=== PATIENT | male | born 1995 | race Caucasian/White ===

== ENCOUNTER 2018-01-04 00:07 | Emergency (ER) | payer OTHER ==
[~2018-01-04] VITALS: Ht 165.1 cm; Wt 71.0 kg
[2018-01-04 00:27] VITALS: BP 147/73; PULSE 79; RESP 16; TEMP 98.1; O2SAT 97
--- NOTE | 2018-01-04 01:17 | PD ---
HPI Chief Complaint: Psychiatric Symptoms Time Seen by Provider: 00:13 Travel History International Travel<30 days: No Contact w/Intl Traveler<30days: No Traveled to known affect area: No History of Present Illness HPI 22-year-old white male presents emergency department as a transfer for psychological evaluation under a Sandoval act. Patient was just treated for a mandible fracture. He has arch bars. The patient was placed under a Sandoval act during his evaluation and treatment. Patient states that he has a history of substance abuse but has been sober now for 35 days. History of bipolar disorder and anxiety on Xanax. Patient here denies any suicidal homicidal ideation. He complaints of jaw pain but no other medical complaints. PFSH Past Medical History Narrative Medical Bipolar, anxiety, mandible fracture Asthma: Yes Immunizations Current: Yes Tetanus Vaccination: Unknown Influenza Vaccination: No Past Surgical History Narrative Surgical Arch bars Social History Alcohol Use: Yes (occ) Tobacco Use: Yes Substance Use: No (Sober 35 days) Allergies-Medications (Allergen,Severity, Reaction): Coded Allergies: No Known Allergies (Unverified , 01/04/18) Reported Meds & Prescriptions Reported Meds & Active Scripts Active No Active Prescriptions or Reported Medications Review of Systems General / Constitutional: No: Fever Eyes: No: Visual changes HENT: Positive: Other (Jaw pain), No: Headaches Cardiovascular: No: Chest Pain or Discomfort Respiratory: No: Shortness of Breath Gastrointestinal: No: Abdominal Pain Genitourinary: No: Dysuria Musculoskeletal: No: Pain Skin: No Rash Neurologic: No: Weakness Psychiatric: Positive: Anxiety, Depression, Mood Disorder, Substance Abuse, No : Suicidal Ideations, Disorder of Thought, Homicidal Ideation Endocrine: No: Polydipsia Hematologic/Lymphatic: No: Easy Bruising Physical Exam Narrative GENERAL: Well-nourished, well-developed patient. SKIN: Warm and dry. HEAD: Patient has evidence of facial trauma. Patient has resolving ecchymosis to the left periorbital area. EYES: No scleral icterus. No injection or drainage. ENT: No nasal drainage noted. Airway is patent. Patient arch bars. NECK: Supple, trachea midline. Moves head freely without obvious discomfort. CARDIOVASCULAR: Regular rate and rhythm without murmurs, gallops, or rubs. RESPIRATORY: Breath sounds equal bilaterally. No accessory muscle use. GASTROINTESTINAL: Abdomen soft, non-tender, nondistended. EXTREMITIES: No cyanosis or edema. BACK: Nontender without obvious deformity. No CVA tenderness. NEURO: Patient is alert and oriented. no sensorimotor deficits. Nonfocal. Normal speech. PSYCH: No delusions. No auditory or visual hallucinations. Data Data Last Documented VS Vital Signs Date Time Temp Pulse Resp B/P (MAP) Pulse Ox O2 Delivery O2 Flow Rate FiO2 01/04/18 00:27 98.1 79 16 147/73 (97) 97 Orders Orders Psych Screen (01/04/18 01:04) MDM Medical Decision Making Medical Screen Exam Complete: Yes Emergency Medical Condition: Yes Medical Record Reviewed: Yes Differential Diagnosis MDM: High Differential diagnoses: Schizophrenia, schizoaffective disorder, bipolar, anxiety, depression, adjustment reaction, mood disorder NOS, ODD, depressive disorder NOS, dementia, dementia with agitation, psychosis NOS, substance induced mood disorder, DMDD, Asperger syndrome, infection,electrolyte abnormality, malingering. Narrative Course Mental health screening discussed with the patient. Psychiatric screen ordered. The patient had been medically cleared at another facility. He had his mandible fracture wired. He has been transferred here and accepted by the psychiatrist for mental health evaluation under his Sandoval act. This is medical clearance for psychiatric admission, mandible fracture Diagnosis Primary Impression: Medical clearance for psychiatric admission Additional Impression: Mandible fracture Scripts No Active Prescriptions or Reported Meds Condition: Stable Phiilpp Crowley Jan 04, 2018 01:17
[2018-01-04] MEDS ORDERED: ACETAMINOPHEN 325MG/HYDROcodone 7.5MG/15ML UDC PO ONE (05:15)
[2018-01-04] MEDS ORDERED: CLINDAMYCIN PALMITATE SOLN 75 MG/5 ML 100 ML BTL PO SCH (05:15)
[2018-01-04 05:50] VITALS: BP 131/86; PULSE 88; RESP 16; O2SAT 99
[2018-01-04 06:59] VITALS: RESP 20
[2018-01-04] MEDS ORDERED: PERI0.126 SWISH-SPIT (09:11)
--- NOTE | 2018-01-04 09:16 | PD ---
Physical Exam Date Seen by Provider: Jan 04, 2018 Time Seen by Provider: 09:12 Narrative 22-year-old male previously Jaime acted at another facility and sent here for psychiatric evaluation. Patient was medically cleared prior to arrival and is noted to have a broken jaw that has been wired shut. He comes with prescriptions for clindamycin and Lortab liquid. Patient was seen by psychiatric staff and deemed psychiatrically stable for discharge. Patient remains medically stable for discharge. He is given a prescription for Peridex rinse in addition to his other prescriptions. Data Data Last Documented VS Vital Signs Date Time Temp Pulse Resp B/P (MAP) Pulse Ox O2 Delivery O2 Flow Rate FiO2 01/04/18 06:59 20 01/04/18 05:50 88 131/86 (101) 99 Room Air 01/04/18 00:27 98.1 Orders Orders Psych Screen (01/04/18 01:04) Acetamin-Hydrocod 325-7.5 Liq (Hycet 325 (01/04/18 05:15) Clindamycin Liq (Cleocin Liq) (01/04/18 05:15) Diet Liquid (01/04/18 Breakfast) Chlorhexidine 0.12% Liq (Peridex 0.12% L (01/04/18 12:00) MDM Medical Record Reviewed: Yes Supervised Visit with MADELIN: Yes Narrative Course 22-year-old male previously Jaime acted at another facility and sent here for psychiatric evaluation. Patient was medically cleared prior to arrival and is noted to have a broken jaw that has been wired shut. He comes with prescriptions for clindamycin and Lortab liquid. Patient was seen by psychiatric staff and deemed psychiatrically stable for discharge. Patient remains medically stable for discharge. He is given a prescription for Peridex rinse in addition to his other prescriptions. Diagnosis Primary Impression: Medical clearance for psychiatric admission Additional Impression: Mandible fracture Referrals: Oral Maxillofacial Surgeon Patient Instructions: General Instructions Additional Instruction: Patient to take prescriptions as prescribed. Recommend follow-up with maxillofacial surgeon regarding his jaw. Patient to be picked up by his grandfather. Med/Other Pt SpecificInfo: Prescription(s) given Scripts Chlorhexidine Gluconate (Mouth) Liq (Peridex Liq) 0.12% Soln 15 ML SWISH-SPIT QID, #[id number] ML 2 Refills Prov: Franklin Banerjee MD 01/04/18 Disposition: 01 DISCHARGE HOME Condition: Stable Kenneth Hawkins Jan 04, 2018 09:16
[2018-01-04] MEDS ORDERED: CHLORHEXIDINE GLUCONATE 0.12% 15 ML CUP SWISH-SPIT SCH (12:00)
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
== END 2018-01-04 11:32 | disposition home or self-care (01) ==
LOC: NEPD 00:07
DX: S02.609A Fracture of mandible, unspecified, initial encounter for closed fracture (principal); F41.9 Anxiety disorder, unspecified; F31.9 Bipolar disorder, unspecified; X58.XXXA Exposure to other specified factors, initial encounter
CPT/HCPCS: 99284